=== PATIENT | male | born 1995 | race Caucasian/White ===

== ENCOUNTER → 2019-01-01 | Outpatient (CLI) | payer OTHER | LOC: COL.PUL 07:44 | DX: J45.909 Unspecified asthma, uncomplicated (principal) ==

== ENCOUNTER → 2019-02-13 | Outpatient (CLI) | payer OTHER | LOC: COL.PUL 12:49 | DX: J45.909 Unspecified asthma, uncomplicated (principal) | CPT/HCPCS: J7674 ==

== ENCOUNTER → 2019-04-18 | Outpatient (CLI) | payer OTHER | LOC: COL.RAD 12:51 | DX: R22.31 Localized swelling, mass and lump, right upper limb (principal) ==

== ENCOUNTER → 2020-05-06 | Outpatient (CLI) | payer OTHER | LOC: COL.PUL | DX: J45.909 Unspecified asthma, uncomplicated (principal) ==